=== PATIENT | male | born 2005 | race Caucasian/White ===

== ENCOUNTER 2025-08-07 10:58 | Emergency (ER) | payer BC, SELFPAY ==
[2025-08-07 10:59] VITALS: BMI 30.6
[2025-08-07 11:01] VITALS: BP 153/89
[2025-08-07 12:44] VITALS: BP 128/74
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
[2025-08-07 14:00] VITALS: BP 114/69
== END 2025-08-07 16:15 | disposition home or self-care (01) ==
LOC: EMR 10:58
PROVIDERS: EMERGENCY PHYSICIAN Emergency Medicine; FAMILY PHYSICIAN Family Medicine
DX: G44.309 Post-traumatic headache, unspecified, not intractable (principal); F07.81 Postconcussional syndrome
CPT/HCPCS: 99284; 70450; 93880